=== PATIENT | female | born 1975 | race Two or more races ===

== ENCOUNTER 2023-01-03 12:44 | Emergency (ER) | payer OTHER ==
[~2023-01-03] VITALS: Ht 152.4 cm; Wt 72.6 kg
[2023-01-03] MEDS ORDERED: NORFLEX100MG PO (16:40)
== END 2023-01-03 16:48 | disposition home or self-care (01) ==
LOC: ER 12:44
DX: M54.2 Cervicalgia (principal); M54.50 Low back pain, unspecified; V43.52XA Car driver injured in collision with other type car in traffic accident, initial encounter; Y92.413 State road as the place of occurrence of the external cause; Y93.89 Activity, other specified; Z88.0 Allergy status to penicillin; Z88.6 Allergy status to analgesic agent; Z91.013 Allergy to seafood